=== PATIENT | male | born 1945 | race Caucasian/White ===

== ENCOUNTER 2016-10-03 08:38 | Outpatient (CLI) | payer MEDICARE ==
[2016-10-03 11:20] LABS: ALBUMIN/GLOBULIN RATIO 1.5 (1.0-2.2); BILIRUBIN,TOTAL 1.2 mg/dL (0.2-1.0); CREATININE 0.6 mg/dL (0.6-1.2); POTASSIUM 3.5 mmol/L (3.5-5.0)
== END 2016-10-03 08:39 | disposition home or self-care (01) ==
LOC: LAB.F 08:38
PROVIDERS: ATTEND Family Medicine
DX: I10 Essential (primary) hypertension (principal)
CPT/HCPCS: 36415; 80053

== ENCOUNTER 2016-11-30 18:46 | Outpatient (CLI) | payer MEDICARE | END 2016-11-30 18:47 | disposition E | LOC: EMS 18:46 | PROVIDERS: ATTEND Surgery ==